=== PATIENT | male | born 1995 | race Caucasian/White ===

== ENCOUNTER → 2019-06-22 | Outpatient (CLI) | payer OTHER | LOC: ZCOL.LAB 16:23 | DX: T14.8XXA Other injury of unspecified body region, initial encounter (principal); Z79.899 Other long term (current) drug therapy ==

== ENCOUNTER 2023-06-11 01:42 | Emergency (ER) | payer SELFPAY ==
[~2023-06-11] VITALS: Ht 180.3 cm; Wt 60.0 kg
[2023-06-11 01:44] VITALS: BP 146/97; PULSE 95; TEMP 98.7
== END 2023-06-11 02:08 | disposition left against medical advice (07) ==
LOC: COL.ER 01:42
DX: R56.9 Unspecified convulsions (principal)

== ENCOUNTER 2023-11-04 09:00 | Emergency (ER) | payer OTHER ==
[~2023-11-04] VITALS: Ht 180.3 cm; Wt 56.8 kg
[~2023-11-04 09:00] MED LIST: ASPIRIN 81M81 MG/TA2 PO; CEPHALEXIN500 M1 PO; NORCO 325 MG-51 TAB PO; PROAIR HFA0.09 MG/AC IH
[2023-11-04 09:05] VITALS: TEMP 98.3
[2023-11-04 09:33] LABS: HEMOGLOBIN 14.6 g/dl (13.5-18.0); MEAN CELL VOLUME 103 fl (80.0-100.0); MEAN CORPUSCULAR HEMOGLOBIN 34 pg (27-31); MEAN CORPUSCULAR HGB CONC 33 g/dl (33.0-37.0); MEAN PLATELET VOLUME 11.2 fl (7.4-10.4); PLATELET COUNT 214 K/mm3 (130-400); RED BLOOD COUNT 4.27 M/mm3 (4.20-5.60); REDCELL DISTRIBUTION WIDTH-CV 12.2 % (11.5-14.5)
[2023-11-04 09:42] LABS: ALBUMIN 4.2 g/dL (3.5-5.0); BILIRUBIN,TOTAL 2.1 mg/dL (0.2-1.2); C-REACTIVE PROTEIN 0.02 mg/dL (0.00-0.50); CALCIUM 9.5 mg/dL (8.4-10.2); CREATININE, serum 0.92 mg/dL (0.72-1.25); POTASSIUM 3.4 mEq/L (3.5-4.5); TOTAL PROTEIN 7.4 g/dl (6.2-8.1)
[2023-11-04] MEDS ORDERED: LIBRIUM 25M25 MG/CAP PO (10:15)
[2023-11-04] MEDS ORDERED: chlordiazePOXIDE 25 MG CAP PO ONE (10:15)
[2023-11-04 10:18] LABS: BAND 4 % (0-10); BASOPHIL 2 % (0-2); EOSINOPHIL 4 % (0-4); LYMPHOCYTE 29 % (20.0-51.0); NEUTROPHILS 42 % (42.0-75.2)
[2023-11-04 10:19] LABS: PLATELET ESTIMATE NORMAL (NORMAL)
[2023-11-04 10:34] VITALS: BP 105/71; PULSE 51
== END 2023-11-04 10:42 | disposition home or self-care (01) ==
LOC: COL.ER 09:00
PROVIDERS: Family Medicine
DX: R56.9 Unspecified convulsions (principal)